=== PATIENT | male | born 1960 | race Two or more races ===

== ENCOUNTER 2023-02-16 10:13 | Emergency (ER) | payer OTHER ==
[~2023-02-16] VITALS: Ht 172.7 cm; Wt 85.3 kg
== END 2023-02-16 12:54 | disposition home or self-care (01) ==
LOC: ER 10:13
DX: K60.3 Anal fistula (principal); E11.9 Type 2 diabetes mellitus without complications

== ENCOUNTER 2023-03-25 07:08 | Outpatient (CLI) | payer OTHER | END 2023-03-25 07:15 | disposition home or self-care (01) | LOC: LAB 07:08 | PROVIDERS: ATTEND Surgery | DX: K60.3 Anal fistula (principal); I10 Essential (primary) hypertension; Z20.822 Contact with and (suspected) exposure to COVID-19; Z03.818 Encounter for observation for suspected exposure to other biological agents ruled out ==

== ENCOUNTER 2023-04-06 04:56 | Day surgery (SDC) | payer OTHER ==
[~2023-04-06 04:56] MED LIST: ENALAPRIL MALE2.5 MG PO; FOLIC A PO; GLUMETZA500 MG PO; ROSUVAST PO; ZOLPI PO
[2023-04-06] MEDS ORDERED: PERCOCET 5-3251 EACH PO (08:45)
[2023-04-06] MEDS ORDERED: RECTICARE30 GM TOP (08:46)
== END 2023-04-06 13:25 | disposition home or self-care (01) ==
LOC: CIR.AMB 04:56
PROVIDERS: ATTEND Surgery
DX: K60.3 Anal fistula (principal); Z20.822 Contact with and (suspected) exposure to COVID-19; K62.89 Other specified diseases of anus and rectum

== ENCOUNTER 2023-09-03 07:01 | Day surgery (SDC) | payer OTHER ==
[~2023-09-03 07:01] MED LIST changes: +DUPIXENT300 MG/2 M; +FLUOXETINE HCL40 MG PO; +PERCOCET 5-3251 EACH PO; +RECTICARE30 GM TOP
[2023-09-03] MEDS ORDERED: PERCOCET 5-3251 EACH PO (11:25)
[2023-09-03] MEDS ORDERED: METRONIDAZOLE500 MG PO (11:30)
== END 2023-09-03 17:15 | disposition home or self-care (01) ==
LOC: CIR.AMB 07:01
PROVIDERS: ATTEND Surgery
DX: K60.3 Anal fistula (principal); Z91.040 Latex allergy status; Z20.822 Contact with and (suspected) exposure to COVID-19